=== PATIENT | male | born 1975 | race Caucasian/White ===

== ENCOUNTER → 2021-04-01 | Outpatient (CLI) | payer OTHER ==
[~2021-04-01] MED LIST: FENOFIBRATE145 MG PO; MOTRIN200 MG PO; augmentin PO
== END ==
LOC: VACCPMC 13:57
DX: Z23 Encounter for immunization (principal); Z20.822 Contact with and (suspected) exposure to COVID-19

== ENCOUNTER → 2023-11-03 | Day surgery (SDC) | payer OTHER ==
[~2023-11-03] MED LIST changes: +LIDOCAINE HCL 2% LOCAL INJ 5 ML SDV VIAL INJ ONE; +OLMESARTAN-HCT1 EACH PO; +PROPOFOL IV EMULSION 10 MG/ML 20 ML VIAL ONE; +TURMERIC500 M1 PO; +VASCEPA1 GM PO; +VITAMIN C1000 MG PO
[2023-11-03] MEDS: LACTATED RINGER'S 1,000 ML BAG IV ONE (14:15)
[2023-11-03 17:02] VITALS: TEMP 97.5
[2023-11-03 17:15] VITALS: BP 102/50; PULSE 70; RESP 16; O2SAT 100
== END | disposition home or self-care (01) ==
LOC: OR 13:34
PROVIDERS: ATTEND Internal Medicine Gastroenterology
DX: Z12.11 Encounter for screening for malignant neoplasm of colon (principal); K63.5 Polyp of colon; K57.30 Diverticulosis of large intestine without perforation or abscess without bleeding; K64.8 Other hemorrhoids; Z71.3 Dietary counseling and surveillance; G47.33 Obstructive sleep apnea (adult) (pediatric); I10 Essential (primary) hypertension; E78.5 Hyperlipidemia, unspecified; Z79.1 Long term (current) use of non-steroidal anti-inflammatories (NSAID); Z79.899 Other long term (current) drug therapy; Z68.33 Body mass index [BMI] 33.0-33.9, adult
CPT/HCPCS: 45385; J2001; J2704; J7121